=== PATIENT | female | born 1950 | race Caucasian/White ===

== ENCOUNTER → 2021-10-17 | Day surgery (SDC) | payer MEDICARE, OTHER ==
[~2021-10-17] VITALS: Ht 160 cm; Wt 93.0 kg
[~2021-10-17] MED LIST: ASCORBIC ACID500 MG PO; ASPIRIN EC81 MG PO; CALCIUM500 MG PO; LISINOPRIL-HCT1 EACH PO; PROBIOTIC1 EAC1 PO; SYNTHROID50 MCG PO; TURMERIC500 M1 PO; VICODIN 10/3251 EACH PO; VITAMIN B125000 MCG PO; VITAMIN D350 MC3 PO
== END | disposition home or self-care (01) ==
LOC: FAS 07:20
DX: K63.5 Polyp of colon (principal); K62.1 Rectal polyp; K57.30 Diverticulosis of large intestine without perforation or abscess without bleeding; K64.8 Other hemorrhoids; I10 Essential (primary) hypertension; E03.9 Hypothyroidism, unspecified; E78.00 Pure hypercholesterolemia, unspecified; M19.90 Unspecified osteoarthritis, unspecified site; E78.5 Hyperlipidemia, unspecified; E66.9 Obesity, unspecified; Z68.36 Body mass index [BMI] 36.0-36.9, adult; Z79.82 Long term (current) use of aspirin; Z79.899 Other long term (current) drug therapy; Z90.49 Acquired absence of other specified parts of digestive tract; Z90.710 Acquired absence of both cervix and uterus
CPT/HCPCS: J2250; J2704; J7120